=== PATIENT | female | born 1945 | race Caucasian/White ===

== ENCOUNTER 2020-09-07 05:14 | Inpatient (IN) | payer MEDICARE, OTHER ==
[~2020-09-07] VITALS: Ht 165.1 cm; Wt 95.0 kg
[~2020-09-07 05:14] MED LIST: DOXY100 PO; NAPR220 PO; RANI150 PO
[2020-09-07 05:25] LABS: Calcium, Ionized (POC) 1.13 mmol/L (1.10-1.46); Chloride (POC) 106 mmol/L (98-108); Creatinine (POC) 0.8 mg/dL (0.6-1.0); Glucose (ISTAT POC) 297 mg/dL (70-99); Hemoglobin (POC) 15.3 g/dL (12.0-16.0); Sodium (POC) 140 mmol/L (135-148); Total CO2 (POC) 22 mmol/L (21-32)
[2020-09-07 05:28] LABS: PCO2 Arterial 48.1 mmHg (35-45); PO2 Arterial 94.6 mmHg (80-100); pH Blood Arterial 7.23 (7.35-7.45)
[2020-09-07 05:35] LABS: BASOPHILS PERCENT AUTO 1 % (0-2); EOSINOPHILS ABSOLUTE AUTO 0.42 K/mm3 (0.00-0.68); EOSINOPHILS PERCENT AUTO 3 % (0-6); Hematocrit 43.2 % (33.0-51.0); Hemoglobin 13.9 g/dL (11.5-16.0); IMMATURE GRAN ABSOLUTE AUTO 0.09 K/mm3 (0.00-0.10); IMMATURE GRAN PERCENT AUTO 1 % (0-1); LYMPHOCYTES ABSOLUTE AUTO 5.04 K/mm3 (0.84-5.20); LYMPHOCYTES PERCENT AUTO 36 % (21-46); MONOCYTES PERCENT AUTO 8 % (4-13); Mean Corpuscular HGB 29.8 pg (26.0-34.0); Mean Corpuscular HGB Conc 32.2 g/dL (31.5-36.5); Mean Corpuscular Volume 93 fL (80-100); NEUTROPHILS ABSOLUTE AUTO 7.12 K/mm3 (1.96-9.15); NEUTROPHILS PERCENT AUTO 52 % (41-73); Platelet Count 232 K/mm3 (150-400); RDW Coefficient Variation 16.8 % (11.7-14.2); RDW Standard Deviation 57.4 fL (35.1-46.3); Red Blood Cell Count 4.66 M/mm3 (3.80-5.20); White Blood Cell Count 13.87 K/mm3 (4.00-11.30)
[2020-09-07 05:47] LABS: International Normalized Ratio 0.95; Prothrombin Time Results 10.2 Sec (9.7-11.5)
[2020-09-07 06:18] LABS: Alanine Aminotransfer (ALT/SGP 21 U/L (12-78); Albumin, Blood 3.7 g/dL (3.4-5.0); Albumin/Globulin Ratio 1.2 (0.8-1.8); Alk Phos 63 U/L (50-136); Anion Gap 13 mmol/L (6-16); Aspartate Aminotrans (AST/SGOT 19 U/L (12-37); Bilirubin, Total 0.4 mg/dL (0.1-1.0); Blood Urea Nitrogen 16 mg/dL (8-24); Bun/Creatinine Ratio 22.8 (12.0-20.0); CO2, Blood 21 mmol/L (21-32); Calcium, Blood 8.5 mg/dL (8.5-10.1); Chloride, Blood 107 mmol/L (98-108); Globulin, Blood 3.2 g/dL (2.2-4.0); Glomerular Filtration Rate >60 (60-); Glucose, Blood 278 mg/dL (70-99); Magnesium, Blood 2.3 mg/dL (1.6-2.4); Potassium, Blood 3.9 mmol/L (3.5-5.5); Sodium, Blood 141 mmol/L (136-145); Total Protein, Blood 6.9 g/dL (6.4-8.2); Troponin I 0.023 ng/mL (0.000-0.040)
[2020-09-07 08:07] LABS: CHOL/HDL RATIO 2.9; Cholesterol 193 mg/dL (50-200); HDL Cholesterol 66 mg/dL (>39); LDL/HDL RATIO 1.4; Low Density Lipoprotein Chol 91 mg/dL (0-110); Triglycerides 178 mg/dL (30-160); Very Low Density Lipoprot Chol 35 mg/dL (6-32)
--- NOTE | 2020-09-07 11:01 | NUR ---
Echocardiogram completed.
--- NOTE | 2020-09-07 11:31 | NUR ---
ICU ADMISSION: PATIENT ARRIVED TO UNIT AT 0830, BARB Espinal RN RECEIVED REPORT FROM DAT WHITE. ASSUMED CARE ALONGSIDE BARB Espinal RN. PATIENT IS A/O AND RESPONDS TO QUESTIONS APPROPRIATELY. SYSTOLIC BP OCCASIONLLY RISES TO 160S, HR 60-80 BPM. PATIENT IS ABLE TO STAND AND REPOSITION INDEPENDENTLY, COMPLAINS OF PAIN IN KNEES WHICH PATIENT STATES IS CHRONIC. PATIENT STATES SHE IS THE PRIMARY CAREGIVER FOR HER WHO HAD A STROKE SEVERAL YEARS AGO AND THAT SHE WOULD LIKE SOME ADDITIONAL HELP THIS IS TAXING TO HER AND DOESN'T HAVE FAMILY SUPPORT. PATIENT DENIES CHEST PAIN, DIZZINESS, AND BREATHING DIFFICULTY. TEMP BEARD IN PLACE PATENT AND DRAINING. DIURESIS PER EMAR. PATIENT IS CURRENTLY NPO, PROVIDER PLANS FOR SHOT PEENING OPERATOR EARLY AFTERNOON. RESTING COMFORTABLY WITH CALL LIGHT IN REACH AT THIS TIME.
--- NOTE | 2020-09-07 11:49 | NUR ---
ADMISSION: REPORT RECIEVED FROM DAT WHITE IN ED. PT ARRIVED TO ICU AT APPROX 0830. ON ARRIVAL, THE PT IS A&O, WEARING A CPAP. SHE IS PLACED ON 3L NC FOR TX FROM GURNEY TO BED & IS TOLERATING THIS WELL W/ O2 SATS > 92%. PT TX FROM RNEY TO BED W/ 4 STAFF ASSIST & SLIDER SHEET. LS ARE CLEAR T/O, PT CONTINUES TO SAT WELL ON 3L NC & CPAP REMAINS OFF. MONITOR SHOWS SR W/ BBB & OCCASIONAL PACs, HR 60-90s. HTN W/ SBP NOTED 160s AT TIMES. PT CURRENTLY DENIES CP OR SOB. DR BLAND HAS BEEN AT BEDSIDE TO SEE THIS PT & INFORMED HER THAT SHE WILL LIKELY BE GOING TO THE SIGNAL CONSTRUCTOR FOR AN ANGIOGRAM EARLY IN THE AFTERNOON. PT IS NPO R/T ANTICIPATED PROCEDURE. TEMP BEARD PLACE IN ED IS PATENT/ DRAINING PALE YELLOW URINE W/ DIURESIS NOTED IN EMAR. SKIN CONDITION OVERALL CDI. WILL CONTINUE TO MONITOR & UPDATE NEEDED.
--- NOTE | 2020-09-07 11:59 | NUR ---
DR OCAMPO: PROVIDER HAS BEEN AT BEDSIDE THIS AM TO SEE PT. UPDATED HER ON DR LICEA's PLAN FOR PT TO HAVE ANGIOGRAM THIS AFTERNOON. SHE STS CONTINUE POC. NO CHANGES AT THIS TIME.
[2020-09-07 12:47] LABS: Source, Urine Catheter
[2020-09-07 13:34] LABS: Appearance, Urine Hazy (Clear); Bilirubin, Urine Neg (Neg); Blood, Urine 5+ (Neg); Color, Urine Yellow (P-Yellow); Glucose Qualitative, Urine Neg (Neg); Ketones, Urine Neg (Neg); Leukocyte Esterase, Urine 3+ (Neg); Nitrite, Urine Neg (Neg); Protein, Urine 1+ (Neg); Urobilinogen, Urine NORM (Normal); pH, Urine 6.5 (5.0-8.0)
[2020-09-07 14:04] LABS: Troponin I 4.23 ng/mL (0.000-0.040)
[2020-09-07 14:23] LABS: Creatine Kinase MB Index 13.1 (0.0-4.0)
[2020-09-07 14:37] LABS: Bacteria Mod /hpf; Squamous Epithelial Cells Not Seen /hpf (Few)
--- NOTE | 2020-09-07 16:00 | NUR ---
SCALE SHOOTER: HEART CENTER RN, SERGIO, HAS BEEN AT BEDSIDE TO TAKE THIS PT FOR ANGIOGRAM. PT OUT OF ROOM & HEPARIN PLACED ON STANDBY AT APPROX 1555. [facility], AWARE THAT HEPARIN HAS BEEN STOPPED. THE PT HAS CONTINUED TO DENY CP OR SOB THIS AFTERNOON.
--- NOTE | 2020-09-07 16:24 | NUR ---
Per admit trigger, I attempted to meet with pt to offer information on advanced care planning. She was sleeping soundly and did not awaken to voice. Per RN, she will be going for airport maintenance laborer proceedure this afternoon. Per my judgement, this is inappropriate time for this conversation. AD packet left on bedisde table. I will remain available.
--- NOTE | 2020-09-07 18:27 | NUR ---
RETURN FROM HEART CENTER / SHIFT SUMMARY: REPORT RECEIVED FROM CAMELIA HILL RN. PER REPORT, THE PT HAS RECEIVED 4 MG VERSED & 75 MCG FENTANYL, 6000 UNIT HEPARIN. 40 MG IV LASIX ALSO GIVEN IN HEART CENTER FOR PT SUDDEN ONSET SOB & ANXIETY. PT ON 6L NRB W/ IMPROVED O2 SATS & PT STS SOB HAS IMPROVED. ANGIOGRAM COMPLETED W/ RT RADIAL ACCESS, TR BAND IN PLACE W/ 12 CC AIR, PLACED AT 1800. ONE STENT PLACED TO MID CIRC, PROVIDER WAS UNABLE TO ACCESS LAD DURING THIS PROCEDURE & THE PT WILL LIKELY NEED TO RETURN AT A LATER TIME FOR A FOLLOW-UP PROCEDURE R/T THIS. PT BACK TO ROOM ICU-14 AT APPROX 1818. THE PT IS ON 6L NC ON RETURN TO ICU. SHE IS TOLERATING THIS WELL W/ O2 SATS > 92%, ALTHOUGH SHE STS THAT SHE STILL FEELS "A LITTLE" SOB. MONITOR SHOWS SR W/ HR 70s, BP STABLE. TEMP BEARD PATENT/ DRAINING W/ INCREASED OUTPUT SINCE LASIX ADMIN IN HC - SEE I&O. TWO PUNCTURE SITES NOTED TO R WRIST BENEATH TR BAND. PROXIMAL SITE WAS INITIAL ATTEMPT & DISTAL SITE WAS SUCCESSFUL ATTEMPT. SMALL AMNT BRUISING NOTED IN THIS AREA, UNCHANGED PER REPORT. NO BLEEDING OR HEMATOMA FORMATION NOTED, CAP REFILL < 3 SECONDS & DIGITS WARM TO TOUCH W/ STRONG PLETH NOTED ON SPO2 MONITOR. WILL CONTINUE TO MONITOR & REPORT OFF TO ONCOMING RN.
--- NOTE | 2020-09-07 19:15 | NUR ---
ASSUMPTION OF CARE RECEIVED REPORT FROM BARB DAUGHERTY AT 1915. PATIENT A/O, UP IN BED 5L [address] WITH SATS ABOVE 95%. TR BAND TO RIGHT RADIAL SITE WITH 12CC AIR AND WRIST IMMOBILIZER IN PLACE. BEARD CATHETER PATENT AND DRAINING CLEAR YELLOW URINE. PATIENT DENIES PAIN. VITALS STABLE. WILL REVIEW ORDERS AND TREAT PRESCRIBED.
[2020-09-07 21:55] LABS: Troponin I 3.55 ng/mL (0.000-0.040)
--- NOTE | 2020-09-07 21:58 | NUR ---
TR BAND FINAL 2 CC OF AIR REMOVED FROM TR BAND WITH NO BLEEDING OR HEMATOMA NOTED AT 2130. NOTIFIED SHANDRA IN PHARMACY OF TIME TO RESTART HEPARIN DRIP PER DR. BAKER'S ORDERS.
[2020-09-07 22:11] LABS: Creatine Kinase MB 22.1 ng/mL (0.0-3.6); Creatine Kinase MB Index 8.4 (0.0-4.0)
--- NOTE | 2020-09-07 23:17 | NUR ---
BLOOD PRESSURE HYPERTENSION NOTED, SPOKE WITH DR. LOWE VIA T/P RECEIVED ORDERS FOR HYDRALAZINE. MEDICATED CHARTED. WILL MONITOR.
--- NOTE | 2020-09-08 | NUR ---
REASSESSMENT NO ACUTE CHANGES FROM PREVIOUS ASSESSMENT. PATIENT REMAINS ON RA WITH SATS ABOVE 95%. PATIENT HAS VOICED SOME CONCERNS REGARDING SHE FEELS AFRAID TO SLEEP WITH HER CURRENT CONDITION. EDUCATED PATIENT SHE WAS STABLE, AND ON A CONTINOUS MONITOR THAT WOULD ALARM WITH ACUTE EVENTS. PATIENT VERBALIZED UNDERSTANDING, IS RESTING WITH EYES CLOSED AT THIS TIME. HYDRALAZINE WAS GIVEN CHARTED. BEARD CATHETER PATENT AND DRAINING.
--- NOTE | 2020-09-08 01:44 | NUR ---
HEPARIN RESTARTED HEPARIN GTT AT 13UNIT/KG ORDERED BY PHARMACY.
[2020-09-08 01:48] LABS: BASOPHILS ABSOLUTE AUTO 0.04 K/mm3 (0.00-0.23); BASOPHILS PERCENT AUTO 0 % (0-2); EOSINOPHILS PERCENT AUTO 0 % (0-6); Hematocrit 40.8 % (33.0-51.0); Hemoglobin 13.8 g/dL (11.5-16.0); IMMATURE GRAN ABSOLUTE AUTO 0.05 K/mm3 (0.00-0.10); IMMATURE GRAN PERCENT AUTO 0 % (0-1); LYMPHOCYTES ABSOLUTE AUTO 0.65 K/mm3 (0.84-5.20); LYMPHOCYTES PERCENT AUTO 5 % (21-46); MONOCYTES ABSOLUTE AUTO 0.81 K/mm3 (0.16-1.47); MONOCYTES PERCENT AUTO 6 % (4-13); Mean Corpuscular HGB 29.6 pg (26.0-34.0); Mean Corpuscular HGB Conc 33.8 g/dL (31.5-36.5); Mean Platelet Volume 12.8 fL (9.1-12.4); NEUTROPHILS ABSOLUTE AUTO 12.67 K/mm3 (1.96-9.15); NEUTROPHILS PERCENT AUTO 89 % (41-73); Platelet Count 222 K/mm3 (150-400); RDW Coefficient Variation 16.7 % (11.7-14.2); RDW Standard Deviation 53.4 fL (35.1-46.3); Red Blood Cell Count 4.66 M/mm3 (3.80-5.20); White Blood Cell Count 14.22 K/mm3 (4.00-11.30)
[2020-09-08 01:51] LABS: Mean Corpuscular Volume 88 fL (80-100)
[2020-09-08 02:05] LABS: Alanine Aminotransfer (ALT/SGP 26 U/L (12-78); Albumin, Blood 3.8 g/dL (3.4-5.0); Alk Phos 57 U/L (50-136); Anion Gap 8 mmol/L (6-16); Aspartate Aminotrans (AST/SGOT 40 U/L (12-37); Bilirubin, Total 0.8 mg/dL (0.1-1.0); Blood Urea Nitrogen 15 mg/dL (8-24); Bun/Creatinine Ratio 25.3 (12.0-20.0); CO2, Blood 28 mmol/L (21-32); Calcium, Blood 9.1 mg/dL (8.5-10.1); Chloride, Blood 107 mmol/L (98-108); Creatinine, Blood 0.59 mg/dL (0.40-1.00); Globulin, Blood 3.7 g/dL (2.2-4.0); Glomerular Filtration Rate >60 (60-); Glucose, Blood 143 mg/dL (70-99); Potassium, Blood 3.2 mmol/L (3.5-5.5); Sodium, Blood 143 mmol/L (136-145); Total Protein, Blood 7.5 g/dL (6.4-8.2)
--- NOTE | 2020-09-08 04:00 | NUR ---
REASSESSMENT NO ACUTE CHANGES FROM PREVIOUS ASSESSMENTS. VITALS STABLE. REMAINS ON ROOM AIR. STATES JUST FEELS DRY SO IT MAKES IT HARD TO BREATH. WATER PROVIDED, PATIENT STATED THAT WAS HELPFUL. SATS ABOVE 95%. CALL LIGHT IN REACH.
--- NOTE | 2020-09-08 04:46 | NUR ---
LABS REPORTED PATIENT'S POTASSIUM TO DR. WELLS. RECEIVED NEW ORDERS TO TREAT.
--- NOTE | 2020-09-08 06:17 | NUR ---
SHIFT SUMMARY PATIENT TITRATED OFF OXYGEN AT BEGINNING OF SHIFT WITH SATS ABOVE 95%. TR BAND WAS REMOVED AT 2130 WITH NO BLEEDING OR HEMATOMA. HEPARIN WAS RESTARTED AT 0130 AT 13UNIT/KG PER PHARMACY DOSING AND ORDERED BY OLIVIA. HYPERTENSION NOTED AND HYDRALAZINE WAS ORDERED AND GIVEN ONE TIME CHARTED. PATIENT UP TO CHAIR TWICE FOR COMFORT AND COMMODE ONCE FOR BOWEL MOVEMENT PREVIOUSLY CHARTED. POTASSIUM ORDERED BY DR. WELLS AND INFUSING CHARTED. BEARD REMAINED PATENT AND DRAINING. WILL MONITOR AND REPORT TO ONCOMING RN.
--- NOTE | 2020-09-08 07:37 | NUR ---
ASSUMED CARE: REPORT RECEIVED FROM BERNADINE Torres RN. ASSUMED CARE OF THIS PT AT APPROX 0700. ON ASSESSMENT, THE PT IS STANDING AT BEDSIDE TRYING TO "WORK OUT THE FOOT CRAMPS." SHE IS A&O TO ALL, VERBALIZES HAVING NO PAIN OR SOB. PT ON RA W/ O2 SATS > 92%. MONITOR SHOWS SR W/ BBB & PACs, HR 50-80s, BP STABLE. SHE HAS NO GI COMPLAINTS & HAS HAD ONE BM DURING THE NIGHT, PER REPORT. TEMP BEARD PATENT/ DRAINING, IN PLACE FOR STRICT I&O WHILE DIURESING. SKIN CONDITION OVERALL CDI. R RADIAL PUNCTURE SITE DRESSING CDI, AREA FREE OF BLEEDING OR HEMATOMA FORMATION, SLIGHT BRUISING NOTED UNDER DRESSING. WILL CONTINUE TO MONITOR & UPDATE NEEDED.
--- NOTE | 2020-09-08 08:57 | NUR ---
DR BAKER: PROVIDER HAS BEEN AT BEDSIDE TO EVAL PT THIS AM. HE STS OKAY FOR HER TO TRANSFER TO PCU STATUS. LASIX CHANGED FROM IV TO PO. NO OTHER CHANGES AT THIS TIME.
--- NOTE | 2020-09-08 10:35 | NUR ---
DR OCAMPO: PROVIDER AT BEDSIDE TO EVAL PT. SHE PLANS TO PLACE ORDERS FOR MEDS TO HELP THIS PT SLEEP TONIGHT. SHE HAS STRONGLY REINFORCED THAT THE PT WILL BE STAYING TONIGHT & HAVING HER REPEAT ANGIOGRAM TOMORROW SOMETIME & THAT GOING HOME BETWEEN PROCEDURES IS NOT A GOOD OPTION FOR THIS PT R/T LAD OCCLUSION.
--- NOTE | 2020-09-08 14:45 | NUR ---
DR BAKER: PROVIDER HAS BEEN IN THE UNIT & NOTIFIED KRIS Valle SALVAGE ENGINEERING TECHNICIAN, THAT HE WOULD LIKE THE PT's MAINTAINENCE IVFs STOPPED UNTIL 0800 TOMORROW MORNING AT WHICH TIME THERE IS A NEW ORDER FOR IVFs TO BEGIN. NO OTHER CHANGES AT THIS TIME.
--- NOTE | 2020-09-08 18:43 | NUR ---
SHIFT SUMMARY: NO ACUTE CHANGES SINCE PRIOR UPDATES. PT REMAINS A&O, PLEASANT & COOPERATIVE. SHE CONTINUES ON RA W/ O2 SATS > 92%. MONITOR SHOWS SR W/ BBB, OCCASIONAL PACs & PVCs. EVENING DOSE OF COREG GIVEN FOR SUSTAINED AVG HR 80s THIS AFTERNOON. HTN W/ SCHEDULED MEDS PER EMAR. THE PT STS HAVING LITTLE APPETITE BUT IS TOLERATING SMALL AMNTS OF PO INTAKE WELL. TEMP BEARD PATENT/ DRAINING. SKIN CONDITION OVERALL CDI. R RADIAL PUNCTURE SITE WNL, NO BLEEDING, BRUISING OR HEMATOMA FORMATION NOTED. WILL CONTINUE TO MONITOR & REPORT OFF TO ONCOMING RN.
[2020-09-09 05:23] LABS: BASOPHILS ABSOLUTE AUTO 0.06 K/mm3 (0.00-0.23); BASOPHILS PERCENT AUTO 1 % (0-2); EOSINOPHILS ABSOLUTE AUTO 0.13 K/mm3 (0.00-0.68); EOSINOPHILS PERCENT AUTO 1 % (0-6); Hematocrit 38.4 % (33.0-51.0); Hemoglobin 12.7 g/dL (11.5-16.0); IMMATURE GRAN ABSOLUTE AUTO 0.03 K/mm3 (0.00-0.10); IMMATURE GRAN PERCENT AUTO 0 % (0-1); LYMPHOCYTES ABSOLUTE AUTO 1.65 K/mm3 (0.84-5.20); LYMPHOCYTES PERCENT AUTO 14 % (21-46); MONOCYTES ABSOLUTE AUTO 1.73 K/mm3 (0.16-1.47); MONOCYTES PERCENT AUTO 14 % (4-13); Mean Corpuscular HGB 29.4 pg (26.0-34.0); Mean Corpuscular HGB Conc 33.1 g/dL (31.5-36.5); Mean Corpuscular Volume 89 fL (80-100); NEUTROPHILS ABSOLUTE AUTO 8.57 K/mm3 (1.96-9.15); NEUTROPHILS PERCENT AUTO 70 % (41-73); Platelet Count 201 K/mm3 (150-400); RDW Coefficient Variation 16.7 % (11.7-14.2); RDW Standard Deviation 54.4 fL (35.1-46.3); Red Blood Cell Count 4.32 M/mm3 (3.80-5.20); White Blood Cell Count 12.17 K/mm3 (4.00-11.30)
[2020-09-09 05:38] LABS: Albumin, Blood 3.5 g/dL (3.4-5.0); Anion Gap 7 mmol/L (6-16); Blood Urea Nitrogen 23 mg/dL (8-24); Bun/Creatinine Ratio 34.3 (12.0-20.0); CO2, Blood 26 mmol/L (21-32); Calcium, Blood 8.8 mg/dL (8.5-10.1); Chloride, Blood 109 mmol/L (98-108); Creatinine, Blood 0.67 mg/dL (0.40-1.00); Glomerular Filtration Rate >60 (60-); Glucose, Blood 108 mg/dL (70-99); Magnesium, Blood 2.1 mg/dL (1.6-2.4); Potassium, Blood 3.5 mmol/L (3.5-5.5); Sodium, Blood 142 mmol/L (136-145)
--- NOTE | 2020-09-09 05:55 | NUR ---
SHIFT SUMMARY NO ACUTE CHANGES THIS SHIFT. PT A&OX4. USES CALL LIGHT APPROPRIATELY. VSS. SP02>92% ON RA. PT DID MOUTH BREATH WHILE SLEEPING AND SATS DROPPED TO 86%, PT AWAKENED, REMINDED TO TAKE DEEP BREATH AND SATS INCREASED TO >92%. TELEMETRY READS SR W/ BBB, OCCASIONAL PVC'S. HR 40'S-70'S. BEARD CATHETER DRAINING YELLOW URINE TO GRAVITY. PT HAS R RADIAL SITE. NO BLEEDING, BRUSING, HEMATOMA. PT REFUSES TO WEAR ARM BOARD, BUT DID ADHERE TO NOT BENDING OR LIFTING WITH R WRIST. PT NPO SINCE MIDNIGHT FOR AM PROCEDURE. PT SLEPT T/O NIGHT, STATES SHE FEELS RESTED. CALL LIGHT IN REACH. WILL GIVE REPORT TO ONCOMING NURSE.
--- NOTE | 2020-09-09 08:27 | NUR ---
ASSUMED CARE RECEIVED REPORT FROM PHILIP RN. PT IS LYING IN BED ALERT AND ORIENTED X 4. VSS; ON ROOM AIR; DENIES CHEST PAIN AND SOB. RIGHT RADIAL SITE IS WNL, DENIES PAIN, NUMB/TING IN RIGHT HAND/WRIST. CAP REFIL < 3s, WARM TO TOUCH HAND. PT REFUSES ARM BOARD BUT HAS BEEN EDUCATED ABOUT PROPER MECHANICS. BED LOW AND LOCKED. CALL LIGHT WITHIN REACH.
--- NOTE | 2020-09-09 09:35 | NUR ---
UPDATE PT UP TO COMMODE FOR A BM, AND UPON RETURNING TO BED SHE BECAME SOB AND STARTED TO 'PANIC'. SPO2 AND HR REMAINED NORMAL, PT DENIED ACTUAL CHEST PAIN. 2L NC PLACED ON PT FOR COMFORT, AFTER SOME REST WITH OXYGEN PT CALMED DOWN, AND STATED SHE FELT FINE. WILL CONTINUE TO MONITOR.
--- NOTE | 2020-09-09 14:24 | NUR ---
UPDATE PT HAS NOT LEFT FOR ANALYSIS INTERNSHIP OF YET. PT IS BRADYCARDIC RATE LOW 38-45 DURING SLEEP TO 50-70s WHEN AWAKE. PT IS NOT SYMPTOMATIC, DENIES CHEST PAIN, SOB, AND HR PERKS UP SOON SHE IS WOKEN UP. WILL CONTINUE TO MONITOR.
--- NOTE | 2020-09-09 16:28 | NUR ---
ANALYTICAL STRATEGIST PT OUT OF ICU TO ANALYTICAL STRATEGIST WITH NURSES AT 1608. VSS. BRADYCARDIA, RATE 50-70s WHEN AWAKE, JUST PRIOR WHEN PT WAS SLEEPING IT WAS PRIMARILY IN THE UPPER 40s, BUT WOULD GET LOW 35. ASYMPTOMATIC. PT ON ROOM AIR, DENIED CHEST PAIN AND SOB AT REST, AND EVEN WITH MILD EXERTION (AFTER THE ONE EVEN THIS MORNING, SEE PREVIOUS NURSE NOTE). HEPARIN GTTP AND NS PUT ON STANDBY PER ANALYTICAL STRATEGIST NURSES. REPORTING OFF TO DAT DARLING TO TAKE OVER CARE OF PT WHEN SHE RETURNS FROM ANALYTICAL STRATEGIST.
--- NOTE | 2020-09-09 16:30 | NUR ---
RECIEVED REPORT FROM NIC DAUGHERTY. PT IN SPRING UPHOLSTERER AT THIS TIME.
--- NOTE | 2020-09-09 22:06 | NUR ---
ASSUMPTION OF CARE REPORT RECEIVED FROM LISSET DAUGHERTY. PT LYING FLAT IN BED UNTIL 2317 DUE TO R GROIN SITE, ALSO EDUCATED TO REFRAIN FROM BENDING R WRIST. R GROIN SITE WITH SMALL AMOUNT OF DRAINAGE, WILL CONTINUE TO MONITOR. NS INFUSING AT 75ML/HR. PT DENIES PAIN AT THIS TIME. VSS. BEARD PATENT AND DRAINING TO GRAVITY.
[2020-09-10 03:52] LABS: BASOPHILS ABSOLUTE AUTO 0.04 K/mm3 (0.00-0.23); BASOPHILS PERCENT AUTO 0 % (0-2); EOSINOPHILS ABSOLUTE AUTO 0.11 K/mm3 (0.00-0.68); EOSINOPHILS PERCENT AUTO 1 % (0-6); Hematocrit 36.3 % (33.0-51.0); IMMATURE GRAN ABSOLUTE AUTO 0.05 K/mm3 (0.00-0.10); IMMATURE GRAN PERCENT AUTO 1 % (0-1); LYMPHOCYTES ABSOLUTE AUTO 1.09 K/mm3 (0.84-5.20); LYMPHOCYTES PERCENT AUTO 10 % (21-46); MONOCYTES ABSOLUTE AUTO 1.24 K/mm3 (0.16-1.47); MONOCYTES PERCENT AUTO 11 % (4-13); Mean Corpuscular HGB 30.2 pg (26.0-34.0); Mean Corpuscular HGB Conc 33.1 g/dL (31.5-36.5); Mean Corpuscular Volume 91 fL (80-100); NEUTROPHILS ABSOLUTE AUTO 8.52 K/mm3 (1.96-9.15); NEUTROPHILS PERCENT AUTO 77 % (41-73); Platelet Count 167 K/mm3 (150-400); RDW Coefficient Variation 16.6 % (11.7-14.2); Red Blood Cell Count 3.97 M/mm3 (3.80-5.20); White Blood Cell Count 11.05 K/mm3 (4.00-11.30)
[2020-09-10 03:53] LABS: Mean Platelet Volume 13.2 fL (9.1-12.4)
[2020-09-10 04:00] LABS: Albumin, Blood 3.1 g/dL (3.4-5.0); Anion Gap 8 mmol/L (6-16); Blood Urea Nitrogen 24 mg/dL (8-24); Bun/Creatinine Ratio 38.1 (12.0-20.0); CO2, Blood 22 mmol/L (21-32); Calcium, Blood 8.2 mg/dL (8.5-10.1); Chloride, Blood 113 mmol/L (98-108); Creatinine, Blood 0.63 mg/dL (0.40-1.00); Free Thyroxine 1.07 ng/dL (0.70-1.60); Glomerular Filtration Rate >60 (60-); Glucose, Blood 88 mg/dL (70-99); Magnesium, Blood 2.1 mg/dL (1.6-2.4); Phosphorus, Blood 3.8 mg/dL (2.5-4.9); Potassium, Blood 3.5 mmol/L (3.5-5.5); Sodium, Blood 143 mmol/L (136-145)
--- NOTE | 2020-09-10 07:55 | NUR ---
ASSUMED CARE RECEIVED REPORT FROM DAT STORM. PT IS LYING DOWN IN BED, INDEPENDENT - REPOSITIONING SELF - AND IS ALERT & ORIENTED X 4. SHE DENIES CHEST PAIN, SOB, AND NAUSEA. HER RIGHT GROIN SITE IS OVERALL OKAY - VERY SLIGHT FIRMNESS JUST SUPERIOR TO THE PUNCTURE SITE, BUT BRUISING, OR EVIDENCE OF LARGE HEMATOMA FORMATION. NONTENDER. RIGHT RADIAL SITE HAS BRUISING, BUT IS SOFT AND NONTENDER, NO SIGNS OF HEMATOMA FORMATION. RLE AND RUE HAVE EVIDENCE OF GOOD PERFUSION; CAP REFI < 3s, WARM TO TOUCH 2+ PULSE - PT DENIES PAIN IN RLE, AND RH. PT IN ASYMPTOMATIC SINUS VITALIY TO NSR, RATE LOW INTO THE 40s (WHEN ASLEEP) AND UP INTO THE 60-70s WHEN AWAKE. PT HAS QT PROLONGATION - DR. ANGULO AWARE. BP STABLE, MAP > 65. SPO2 96% ON ROOM AIR. AFEBRILE. RR 18. BED LOW AND LOCKED. CALL LIGHT WITHIN REACH.
--- NOTE | 2020-09-10 09:37 | NUR ---
UPDATE DR. BARRETT AT BEDSIDE AND WILL BE PUTTING IN DISCHARGE ORDERS FOR PT. WILL WORK ON THOSE ORDERS LAY.
[2020-09-10] MEDS ORDERED: ATOR40TA PO (10:44)
[2020-09-10] MEDS ORDERED: ASPI325 PO (10:44)
[2020-09-10] MEDS ORDERED: CARV6.25 PO (10:45)
[2020-09-10] MEDS ORDERED: FURO40 PO (10:45)
[2020-09-10] MEDS ORDERED: LISI20 PO (10:46)
[2020-09-10] MEDS ORDERED: NITR.4SL SL (11:06)
[2020-09-10] MEDS ORDERED: POTA10T PO (11:06)
[2020-09-10] MEDS ORDERED: TICA90TA PO (11:07)
[2020-09-10] MEDS ORDERED: ALDACTONE25 MG PO (11:09)
--- NOTE | 2020-09-10 12:50 | NUR ---
DISCHARGED IVs REMOVED, WITH NO COMPLICATIONS. VSS PRIOR TO DISCHARGE. PT EDUCATED ON NEW MEDS, NEW APPOINTMENTS, AND SOME LIFESTYLE/DIETARY CHANGES NECCESSARY FOR LIVING WITH HEART FAILURE, HYPERTENSION AND POST STENT PLACEMENT. PT ALERT AND ORIENTED, HAD HER QUESTIONS ANSWERED.
== END 2020-09-10 12:50 | disposition home or self-care (01) | DRG 246 ==
LOC: ER 05:14 → ICUW 07:52
PROVIDERS: Emergency Medicine; Internal Medicine; Internal Medicine Cardiovascular Disease; ADMIT Internal Medicine
PROC: 027034Z Dilation of Coronary Artery, One Artery with Drug-eluting Intraluminal Device, Percutaneous Approach (ICD-10-PCS; principal; 2020-09-07)
PROC: B2111ZZ Fluoroscopy of Multiple Coronary Arteries using Low Osmolar Contrast (ICD-10-PCS; 2020-09-07)
PROC: B240ZZ3 Ultrasonography of Single Coronary Artery, Intravascular (ICD-10-PCS; 2020-09-07)
PROC: 5A09357 Assistance with Respiratory Ventilation, Less than 24 Consecutive Hours, Continuous Positive Airway Pressure (ICD-10-PCS; 2020-09-07)
PROC: B2111ZZ Fluoroscopy of Multiple Coronary Arteries using Low Osmolar Contrast (ICD-10-PCS; 2020-09-09)
PROC: 027034Z Dilation of Coronary Artery, One Artery with Drug-eluting Intraluminal Device, Percutaneous Approach (ICD-10-PCS; 2020-09-09)
DX: I21.4 Non-ST elevation (NSTEMI) myocardial infarction (principal); J96.01 Acute respiratory failure with hypoxia; I50.21 Acute systolic (congestive) heart failure; Z88.2 Allergy status to sulfonamides; I16.0 Hypertensive urgency; I11.0 Hypertensive heart disease with heart failure; Z79.82 Long term (current) use of aspirin; Z79.899 Other long term (current) drug therapy; F51.05 Insomnia due to other mental disorder; K21.9 Gastro-esophageal reflux disease without esophagitis; I25.5 Ischemic cardiomyopathy; I44.7 Left bundle-branch block, unspecified
CPT/HCPCS: 36415; 36600; 51702; 71045; 76937; 80047; 80053; 80061; 80069; 81001; 82550; 82553; 82803; 83036; 83605; 83690; 83735; 83880; 84145; 84439; 84443; 84484; 85014; 85025; 85347; 85610; 85730; 87086; 93005; 93010; 93306; 93454; 94660; 96365-59; 96375-59; 96376-59; 99152; 99153; 99285-25; A9270; C1725; C1760; C1769; C1874; C1887; C1894; C9600; J0360; J0461; J1644; J1940; J2250; J2370; J3010; J3480; J7030; J7040; J7050; Q2038; Q9967

== ENCOUNTER 2020-09-18 21:17 | Emergency (ER) | payer MEDICARE ==
[~2020-09-18] VITALS: Ht 165.1 cm; Wt 92.1 kg
[~2020-09-18 21:17] MED LIST changes: +ALDACTONE25 MG PO; +ASPI325 PO; +ATOR40TA PO; +CARV6.25 PO; +FURO40 PO; +LISI20 PO; +NITR.4SL SL; +POTA10T PO; +TICA90TA PO
[2020-09-18 22:09] LABS: BASOPHILS ABSOLUTE AUTO 0.06 K/mm3 (0.00-0.23); BASOPHILS PERCENT AUTO 1 % (0-2); EOSINOPHILS ABSOLUTE AUTO 0.28 K/mm3 (0.00-0.68); EOSINOPHILS PERCENT AUTO 2 % (0-6); Hemoglobin 13.2 g/dL (11.5-16.0); IMMATURE GRAN ABSOLUTE AUTO 0.04 K/mm3 (0.00-0.10); IMMATURE GRAN PERCENT AUTO 0 % (0-1); LYMPHOCYTES PERCENT AUTO 18 % (21-46); MONOCYTES ABSOLUTE AUTO 1.39 K/mm3 (0.16-1.47); MONOCYTES PERCENT AUTO 12 % (4-13); Mean Corpuscular HGB 30.3 pg (26.0-34.0); Mean Corpuscular HGB Conc 33.8 g/dL (31.5-36.5); Mean Corpuscular Volume 90 fL (80-100); NEUTROPHILS ABSOLUTE AUTO 7.81 K/mm3 (1.96-9.15); NEUTROPHILS PERCENT AUTO 67 % (41-73); Platelet Count 220 K/mm3 (150-400); RDW Standard Deviation 50.3 fL (35.1-46.3); Red Blood Cell Count 4.35 M/mm3 (3.80-5.20); White Blood Cell Count 11.68 K/mm3 (4.00-11.30)
[2020-09-18 22:12] LABS: Mean Platelet Volume 13.8 fL (9.1-12.4)
[2020-09-18 22:26] LABS: Albumin, Blood 3.6 g/dL (3.4-5.0); Albumin/Globulin Ratio 0.9 (0.8-1.8); Bilirubin, Total 0.3 mg/dL (0.1-1.0); Bun/Creatinine Ratio 20.1 (12.0-20.0); Creatinine, Blood 0.99 mg/dL (0.40-1.00); Globulin, Blood 3.8 g/dL (2.2-4.0); Total Protein, Blood 7.4 g/dL (6.4-8.2); Troponin I 0.074 ng/mL (0.000-0.040)
== END 2020-09-19 00:32 | disposition home or self-care (01) ==
LOC: ER 21:17
PROVIDERS: Physician Assistant
DX: R06.02 Shortness of breath (principal); K21.9 Gastro-esophageal reflux disease without esophagitis; I10 Essential (primary) hypertension; Z88.2 Allergy status to sulfonamides; Z79.899 Other long term (current) drug therapy
CPT/HCPCS: 36415; 71046; 80053; 83880; 84484; 85025; 93005; 93010; 99284-25